=== PATIENT | male | born 1950 | race Caucasian/White ===

== ENCOUNTER 2022-08-05 16:25 | Outpatient (CLI) | payer MEDICARE, SELFPAY ==
[2022-08-05 17:15] LABS: Anion Gap 11 mmol/L (8-16); Blood Urea Nitrogen 36 mg/dL (7-18); Calcium 9.1 mg/dL (8.5-10.1); Carbon Dioxide 27 mmol/L (21-32); Chloride 100 mmol/L (98-108); Estimated Glomerular Filt Rate 58; Glucose 183 mg/dL (70-99); Osmolality Calculated 299 mOsm/kg (285-295); Potassium 4.7 mmol/L (3.5-5.1); Sodium 138 mmol/L (136-145)
== END 2022-08-05 16:26 | disposition home or self-care (01) ==
PROVIDERS: PCP Anesthesiology; Visit Provider Anesthesiology
DX: Z95.0 Presence of cardiac pacemaker (principal)
CPT/HCPCS: 36415; 80048

== ENCOUNTER 2022-08-07 06:28 | Day surgery (SDC) | payer MEDICARE, OTHER, SELFPAY ==
[2022-07-30 13:48] VITALS: BMI 37.3
--- NOTE | 2022-08-02 10:05 | PC.NURSE ---
FAXED REQUEST FORM TO DR ANAMARIA VICTORIA FOR RECENT LABWORK, EKG, PACEMAKER INFO. FAXED CRMD FORM TO HANSEL Stephenson
[2022-08-05 08:32] VITALS: BMI 38.5
--- NOTE | 2022-08-06 10:51 | WPDANESEPPF ---
Anes - Initial Pre Proc Eval Procedure: Operation Date: 08/07/22 07:30 Proposed Procedures p Removal Bilateral Myringotomy Tube - Baldomero Styles MD s Insertion Bilateral Myringotomy Tube - Baldomero Styles MD Date/Time: 08/06/22 10:51 Surgeon: Baldomero Styles MD Pre Op Diagnosis: Bilateral Chronic Otitis Media Patient Data Age: 71 Gender: M Height: 1.78 m Weight: 122 kg Allergies Allergy/AdvReac Type Severity Reaction Status Date / Time KERLINE Inhibitors Allergy Intermediate Unknown Verified 08/07/22 06:19 Home Medications Medication Instructions Recorded Confirmed Type apixaban 5 mg tablet (Eliquis) 5 mg PO BID 07/25/22 08/07/22 History atorvastatin 10 mg tablet 10 mg PO DAILY 07/25/22 08/07/22 History diltiazem HCl 360 mg capsule,24 360 mg PO DAILY 07/25/22 08/07/22 History hr,extended release furosemide 40 mg tablet 40 mg PO QAM 07/25/22 08/07/22 History hydrochlorothiazide 25 mg tablet 25 mg PO DAILY 07/25/22 08/07/22 History insulin aspart U-100 100 unit/mL 45 unit subcut TID 07/25/22 08/07/22 History (3 mL) subcutaneous pen (Novolog FlexPen U-100 Insulin aspart) insulin glargine U-300 conc 300 90 unit subcut QHS 07/25/22 08/07/22 History unit/mL (3 mL) subcutaneous pen (Toujeo Max U-300 SoloStar) losartan 100 mg tablet 100 mg PO DAILY 07/25/22 08/07/22 History metoprolol tartrate 50 mg tablet 50 mg PO DAILY 07/25/22 08/07/22 History spironolactone 50 mg tablet 50 mg PO DAILY 07/25/22 08/07/22 History Patient hx anesthesia problems: none Family hx anesthesia problems: none Results Review: All pre-operative results and documents have been reviewed as part of the pre-operative evaluation. [facility] Past Medical History Medical History (Updated 08/07/22 @ 06:42 by Baldomero Styles MD) Clogged ear Diabetes Hyperlipidemia Hypertension Presence of cardiac pacemaker CHRISTIAN (secretory otitis media) Family History Family History Sibling Diabetes mellitus Mother Cancer Social History Social History Social History: Caffeine- coffee daily Smoking status: Never smoker Second hand tobacco smoke exposure: No Alcohol intake: never Substance use: never Substance use type: does not use Lack of Transportation: YES Lack of Food: Often True Current Housing: I Have Housing Concerned About Future Housing: No Difficulty Paying Gas/Electric Bills: No Difficulty Paying for Meds: No Currently Unemployed: YES Education: Grade School Difficulty w/ Childcare or Family Care: No Living arrangements: with family Spiritual care concerns: No Anes - Eval Final PreProcedure Day of Procedure 08/06/22 10:51 Patient weight: obese Heart: regular rate and rhythm Lungs: clear to auscultation Airway: Mallampati scale class II and special considerations poor dentition Neurological: alert and oriented Last oral intake: >/= 8 hours ASA classification: III Emergent: no Anesthetic plan: proceed Anesthesia type and monitoring: general GIVS and standard monitoring Results Review: All pre-operative results and documents have been reviewed as part of the pre-operative evaluation. Informed Consent: The patient's anesthetic plan and its attendant risks and benefits were discussed with the patient/family/POA. Questions were solicited and answers provided to the satisfaction of the patient/family/POA.
--- NOTE | 2022-08-06 12:36 | PM.HPGS ---
History of Present Illness History of Present Illness Consent: Risks, benefits, and alternatives have been discussed and questions answered. Patient agrees to proceed with procedure. Chief complaint: Bilateral Chronic Otitis Media Narrative: Rodrigue Tillman is a 71 year old male Review of Systems Review of Systems: All systems reviewed & are unremarkable except as noted in HPI and below PMFSH Past Medical History Medical History (Updated 08/07/22 @ 06:42 by Baldomero Styles MD) Clogged ear Diabetes Hyperlipidemia Hypertension Presence of cardiac pacemaker CHRISTIAN (secretory otitis media) Family History Family History Sibling Diabetes mellitus Mother Cancer Social History Social History Social History: Caffeine- coffee daily Smoking status: Never smoker Second hand tobacco smoke exposure: No Alcohol intake: never Substance use: never Substance use type: does not use Lack of Transportation: YES Lack of Food: Often True Current Housing: I Have Housing Concerned About Future Housing: No Difficulty Paying Gas/Electric Bills: No Difficulty Paying for Meds: No Currently Unemployed: YES Education: Grade School Difficulty w/ Childcare or Family Care: No Living arrangements: with family Spiritual care concerns: No Meds Home Medications and Allergies Home Medications Medication Instructions Recorded Confirmed Type apixaban 5 mg tablet (Eliquis) 5 mg PO BID 07/25/22 08/07/22 History atorvastatin 10 mg tablet 10 mg PO DAILY 07/25/22 08/07/22 History diltiazem HCl 360 mg capsule,24 360 mg PO DAILY 07/25/22 08/07/22 History hr,extended release furosemide 40 mg tablet 40 mg PO QAM 07/25/22 08/07/22 History hydrochlorothiazide 25 mg tablet 25 mg PO DAILY 07/25/22 08/07/22 History insulin aspart U-100 100 unit/mL 45 unit subcut TID 07/25/22 08/07/22 History (3 mL) subcutaneous pen (Novolog FlexPen U-100 Insulin aspart) insulin glargine U-300 conc 300 90 unit subcut QHS 07/25/22 08/07/22 History unit/mL (3 mL) subcutaneous pen (Toujeo Max U-300 SoloStar) losartan 100 mg tablet 100 mg PO DAILY 07/25/22 08/07/22 History metoprolol tartrate 50 mg tablet 50 mg PO DAILY 07/25/22 08/07/22 History spironolactone 50 mg tablet 50 mg PO DAILY 07/25/22 08/07/22 History Allergies Allergy/AdvReac Type Severity Reaction Status Date / Time KERLIEN Inhibitors Allergy Intermediate Unknown Verified 08/07/22 06:19 Exam Const: General: cooperative HENMT: Head: normal to inspection Ears: other (tubes in place) Assessment and Plan Assessment and plan (1) Clogged ear: Qualifiers: Laterality: bilateral Qualified Code(s): H93.8X3 - Other specified disorders of ear, bilateral Code(s): H93.8X9 - Other specified disorders of ear, unspecified ear Status: Acute Plan MYRINGOTOMY TUBE SURGERY POSTOPERATIVE DISCHARGE INSTRUCTIONS [facility] 1. ACTIVITY Your child has received anesthesia for this procedure. He/she may feel somewhat dizzy and or sleepy after the surgery. Anesthesia agents can remain in one?s body for up to 24 hours. It is important for your child to rest for the remainder of the day and be under adult supervision. Your child should not ride his/her bike or perform activities that require coordination. Children are usually very grumpy and fussy for several hours following general anesthesia. 2. EAR DRAINAGE A small amount of drainage from the ear canal is normal following this surgery. This drainage or bleeding may continue for the next 3-7 days. The prescribed ear drops will treat this drainage. The drainage may contain a small amount of blood. A cotton ball may be placed in the ear canal opening. Drainage is often an indication that the tubes are ?doing their job?. Ear drainage after the first week
[2022-08-07 06:26] VITALS: BP 146/62; PULSE 58; RESP 20; TEMP 36; O2SAT 95
--- NOTE | 2022-08-07 06:40 | PM.HPGS ---
History of Present Illness History of Present Illness Consent: Risks, benefits, and alternatives have been discussed and questions answered. Patient agrees to proceed with procedure. Chief complaint: Bilateral Chronic Otitis Media Narrative: Rodrigue Tillman is a 71 year old male Review of Systems Review of Systems: All systems reviewed & are unremarkable except as noted in HPI and below PMFSH Past Medical History Medical History (Updated 08/06/22 @ 12:40 by Baldomero Styles MD) Clogged ear Diabetes Hyperlipidemia Hypertension Presence of cardiac pacemaker Family History Family History Sibling Diabetes mellitus Mother Cancer Social History Social History Social History: Caffeine- coffee daily Smoking status: Never smoker Second hand tobacco smoke exposure: No Alcohol intake: never Substance use: never Substance use type: does not use Lack of Transportation: YES Lack of Food: Often True Current Housing: I Have Housing Concerned About Future Housing: No Difficulty Paying Gas/Electric Bills: No Difficulty Paying for Meds: No Currently Unemployed: YES Education: Grade School Difficulty w/ Childcare or Family Care: No Living arrangements: with family Spiritual care concerns: No Meds Home Medications and Allergies Home Medications Medication Instructions Recorded Confirmed Type apixaban 5 mg tablet (Eliquis) 5 mg PO BID 07/25/22 08/07/22 History atorvastatin 10 mg tablet 10 mg PO DAILY 07/25/22 08/07/22 History diltiazem HCl 360 mg capsule,24 360 mg PO DAILY 07/25/22 08/07/22 History hr,extended release furosemide 40 mg tablet 40 mg PO QAM 07/25/22 08/07/22 History hydrochlorothiazide 25 mg tablet 25 mg PO DAILY 07/25/22 08/07/22 History insulin aspart U-100 100 unit/mL 45 unit subcut TID 07/25/22 08/07/22 History (3 mL) subcutaneous pen (Novolog FlexPen U-100 Insulin aspart) insulin glargine U-300 conc 300 90 unit subcut QHS 07/25/22 08/07/22 History unit/mL (3 mL) subcutaneous pen (Toujeo Max U-300 SoloStar) losartan 100 mg tablet 100 mg PO DAILY 07/25/22 08/07/22 History metoprolol tartrate 50 mg tablet 50 mg PO DAILY 07/25/22 08/07/22 History spironolactone 50 mg tablet 50 mg PO DAILY 07/25/22 08/07/22 History Allergies Allergy/AdvReac Type Severity Reaction Status Date / Time KERLINE Inhibitors Allergy Intermediate Unknown Verified 08/07/22 06:19 Vital Signs Vital Signs - 24 hr 08/07/22 06:26 Temperature 36.0 C L Pulse Rate 58 L Respiratory Rate 20 Blood Pressure 146/62 H Pulse Oximetry 95 Oxygen Delivery Room Air Exam HENMT: Other: tympanic membranes retracted with fluid nose mild negative serous otitis bilateral
--- NOTE | 2022-08-07 06:41 | PM.HPGS ---
History of Present Illness History of Present Illness Consent: Risks, benefits, and alternatives have been discussed and questions answered. Patient agrees to proceed with procedure. Chief complaint: Bilateral Chronic Otitis Media Narrative: Rodrigue Tilmlan is a 71 year old male [facility] Past Medical History Medical History (Updated 08/07/22 @ 06:42 by Baldomero Styles MD) Clogged ear Diabetes Hyperlipidemia Hypertension Presence of cardiac pacemaker CHRISTIAN (secretory otitis media) Family History Family History Sibling Diabetes mellitus Mother Cancer Social History Social History Social History: Caffeine- coffee daily Smoking status: Never smoker Second hand tobacco smoke exposure: No Alcohol intake: never Substance use: never Substance use type: does not use Lack of Transportation: YES Lack of Food: Often True Current Housing: I Have Housing Concerned About Future Housing: No Difficulty Paying Gas/Electric Bills: No Difficulty Paying for Meds: No Currently Unemployed: YES Education: Grade School Difficulty w/ Childcare or Family Care: No Living arrangements: with family Spiritual care concerns: No Meds Home Medications and Allergies Home Medications Medication Instructions Recorded Confirmed Type apixaban 5 mg tablet (Eliquis) 5 mg PO BID 07/25/22 08/07/22 History atorvastatin 10 mg tablet 10 mg PO DAILY 07/25/22 08/07/22 History diltiazem HCl 360 mg capsule,24 360 mg PO DAILY 07/25/22 08/07/22 History hr,extended release furosemide 40 mg tablet 40 mg PO QAM 07/25/22 08/07/22 History hydrochlorothiazide 25 mg tablet 25 mg PO DAILY 07/25/22 08/07/22 History insulin aspart U-100 100 unit/mL 45 unit subcut TID 07/25/22 08/07/22 History (3 mL) subcutaneous pen (Novolog FlexPen U-100 Insulin aspart) insulin glargine U-300 conc 300 90 unit subcut QHS 07/25/22 08/07/22 History unit/mL (3 mL) subcutaneous pen (Toujeo Max U-300 SoloStar) losartan 100 mg tablet 100 mg PO DAILY 07/25/22 08/07/22 History metoprolol tartrate 50 mg tablet 50 mg PO DAILY 07/25/22 08/07/22 History spironolactone 50 mg tablet 50 mg PO DAILY 07/25/22 08/07/22 History Allergies Allergy/AdvReac Type Severity Reaction Status Date / Time KERLINE Inhibitors Allergy Intermediate Unknown Verified 08/07/22 06:19 Vital Signs Vital Signs - 24 hr 08/07/22 06:26 Temperature 36.0 C L Pulse Rate 58 L Respiratory Rate 20 Blood Pressure 146/62 H Pulse Oximetry 95 Oxygen Delivery Room Air Assessment and Plan Assessment and plan (1) CHRISTIAN (secretory otitis media): Code(s): H65.90 - Unspecified nonsuppurative otitis media, unspecified ear Status: Acute Plan removal andrerplacement tubes
--- NOTE | 2022-08-07 06:42 | WPDHPUPDATE1 ---
History and Physical Update Update Date/Time: 08/07/22 06:42 History and Physical has been reviewed, including an updated exam of the patient. There are NO changes in the patient's condition. Risks, benefits, and alternatives have been discussed and questions answered. Patient agrees to proceed with procedure.
[2022-08-07] MEDS: LACTATED RINGERS 1,000 ML 30 ML IV CONT (06:58)
[2022-08-07] MEDS: CIPROFLOXACIN HCL 0.3% OP SOLN 2.5 ML BTL 4 DROP EACH EAR (07:31)
--- NOTE | 2022-08-07 07:37 | W.PM.PROC2 ---
Procedure Note - Detailed Date of Procedure 08/07/22 Pre-op Diagnosis Bilateral Chronic Otitis Media Post-op Diagnosis Same Procedure Performed BMT Surgeon Baldomero Styles MD Anesthesia General Description of Procedure Patient was prepped and draped in the in the usual fashion after induction of general anesthesia. The [] ear was inspected. Cerumen was removed the ear canal. An anteroinferior incision sit incision was made fluid aspirated and a Sabas bobbin inserted. This procedure was repeated on the other ear with similar findings. Patient awakened returned to recovery in good condition. Packing No Pathology None sent Complications None Condition Stable Disposition Same day [facility] Billing Surgery - Charge Forward: Surgery Billing
[2022-08-07 07:38] VITALS: BP 119/61; PULSE 60; RESP 16; O2SAT 99
[2022-08-07 07:48] VITALS: BP 128/65; PULSE 60; RESP 20; O2SAT 95
[2022-08-07 07:58] VITALS: BP 113/64; PULSE 60; RESP 18; O2SAT 99
[2022-08-07 08:08] VITALS: BP 124/61; PULSE 60; RESP 20; O2SAT 99
--- NOTE | 2022-08-07 12:40 | WPDANESPN ---
Anes - Prog Note Post-Op Date/Time: 08/07/22 12:40 Cardiovascular status: normal Respiratory status: normal Airway patency: baseline Mental status: baseline Post-Op hydration status: normal Vital Signs: Last Vital Signs Temp 36.0 C L 08/07/22 06:26 Pulse 60 08/07/22 08:08 Resp 20 08/07/22 08:08 BP 124/61 08/07/22 08:08 Pulse Ox 99 08/07/22 08:08 O2 Del Method Room Air 08/07/22 08:08 O2 Flow Rate 8 08/07/22 07:38 Pain Score (VAS): 0 I/O: Intake & Output 08/06/22 08/07/22 08/07/22 23:59 07:59 15:59 Intake Total 300 50 Balance 300 50 Post-procedural complaints: none Patient Feedback: Patient satisfied with anesthetic care. Other Findings: Patient vital signs back to baseline. Patient denies nausea and vomiting. Patient's pain under control. Patient OK for discharge.
[2022-08-08 05:53] LABS: Glucose Point of Care 205 mg/dl (65-105)
== END 2022-08-07 08:40 | disposition home or self-care (01) ==
PROVIDERS: PCP Family Medicine; Visit Provider Otolaryngology
PROC: (CPT 69424; principal; 2022-08-07 07:30)
PROC: (CPT 69436; 2022-08-07 07:30)
DX: H65.33 Chronic mucoid otitis media, bilateral (principal)
CPT/HCPCS: 69436 ×2; J7342

== ENCOUNTER 2023-04-29 01:02 | Day surgery (SDC) | payer MEDICARE, OTHER, SELFPAY ==
--- NOTE | 2023-04-18 13:25 | PC.NURSE ---
Report to the Outpatient Waiting Room, entrance under the green pavilion located off [facility], at time _0945 on date ___04/29/23____. Planned Procedure Time: _1145 . Time changes happen often and if your time is changed the preop area will call you the afternoon before. - You and your visitor will be asked to self-screen and do not enter if you have any COVID symptoms. - A mask is optional within the hospital at this time. Patients may have clear liquids (water, carbonated beverages, clear teas, apple juice) until 3 hours prior to surgery( 8:45 AM) with a maximum of 20 ounces. - No food from midnight until time of surgery - Infants may have breast milk until 4 hours before surgery, formula 6 hours prior to surgery. - Children will be allowed to drink immediately following surgery. If applicable, please bring a bottle or sippy cup to assist with drinking. Juice, water, soda, and popsicles are readily available. For infants on formula, please bring formula the day of surgery. Pacifiers are allowed. Take the following medications with a SIP of water the morning of surgery: __DILTIAZEM,METOPROLOL, DO NOT STOP ANY OF YOUR OTHER PRESCRIPTION MEDICATIONS PRIOR TO SURGERY ?EXCEPT THE FOLLOWING Medications to discontinue per physician ____WIFE TO CALL DR GREENBERG_REGARDING ELIQUIS Please no make-up, nail greenlandic, hairspray, perfume, deodorant, or body powder the day of surgery. No jewelry (including any body piercings) or valuables the day of surgery, leave them at home. Please take a shower or bath the night before, or the morning of, surgery with an antibacterial soap. Wear comfortable, loose fitting clothing. Children are encouraged to wear pajamas. - Jewelry must be removed prior to entering the operating room. Rings and piercings that are not removed may be cut off. - The hospital will not accept responsibility for valuables. - Please leave all valuables, including medications, at home the day of surgery. If you are going home after surgery, a licensed milk driver must drive you home. - NO public transportation without another adult if you receive anesthesia. - We recommend that an adult stay with you for 24 hours following discharge. - We also recommend that you do not drive, make important decision, drink alcoholic beverages, or take any drugs that were not prescribed by your health care provider for at least 24 hours after your discharge time. Follow any additional instructions given to you from your surgeon. If you or anyone in your household have experienced Covid symptoms in the past week, please notify your surgeon or the nurse liaison at the phone number below for possible testing. Telephone instructions given to _WIFE MOSES and asked if any additional questions and then verbalized understanding. Patient advised to call surgeon office or pre surgery nurse liaison [phone] if any additional questions.
[2023-04-18 13:46] VITALS: BMI 39.4
--- NOTE | 2023-04-28 17:15 | PM.IMHP ---
H&P: HPI History of Present Illness Date/Time: 04/28/23 17:15 Chief Complaint: eustachian tube dysfunction bilaterally recurrent otitis media chronic otitis media Narrative: planned procedure Review of Systems Review of Systems: All systems reviewed & are unremarkable except as noted in HPI and below PMFSH Past Medical History Medical History (Updated 04/03/23 @ 07:42 by Alan Montemayor MD) Clogged ear Diabetes Hyperlipidemia Hypertension Presence of cardiac pacemaker CHRISTIAN (secretory otitis media) Family History Family History Sibling Diabetes mellitus Mother Cancer Social History Social History Social History: Caffeine- coffee daily Smoking status: Never smoker Second hand tobacco smoke exposure: No Alcohol intake: never Substance use: never Substance use type: does not use Lack of Transportation: YES Lack of Food: Often True Current Housing: I Have Housing Concerned About Future Housing: No Difficulty Paying Gas/Electric Bills: No Difficulty Paying for Meds: No Currently Unemployed: YES Education: Grade School Difficulty w/ Childcare or Family Care: No Living arrangements: with family Spiritual care concerns: No Meds Home Medications and Allergies Home Medications Medication Instructions Recorded Confirmed Type apixaban 5 mg tablet (Eliquis) 5 mg PO BID 07/25/22 04/18/23 History atorvastatin 10 mg tablet 10 mg PO HS 07/25/22 04/18/23 History diltiazem HCl 360 mg capsule,24 360 mg PO DAILY 07/25/22 04/18/23 History hr,extended release furosemide 40 mg tablet 40 mg PO QAM 07/25/22 04/18/23 History hydrochlorothiazide 25 mg tablet 25 mg PO DAILY 07/25/22 04/18/23 History insulin aspart U-100 100 unit/mL 45 unit subcut TID 07/25/22 04/18/23 History (3 mL) subcutaneous pen (Novolog FlexPen U-100 Insulin aspart) losartan 100 mg tablet 100 mg PO DAILY 07/25/22 04/18/23 History metoprolol tartrate 50 mg tablet 50 mg PO DAILY 07/25/22 04/18/23 History spironolactone 50 mg tablet 50 mg PO DAILY 07/25/22 04/18/23 History insulin glargine 100 unit/mL (3 110 unit subcut HS 04/18/23 04/18/23 History mL) subcutaneous pen (Basaglar KwikPen U-100 Insulin) Allergies Allergy/AdvReac Type Severity Reaction Status Date / Time KERLINE Inhibitors Allergy Intermediate Unknown Verified 04/18/23 13:13 Exam Narrative: fluid both sides Assessment and Plan Assessment and plan (1) Otitis media of both ears: Code(s): H66.93 - Otitis media, unspecified, bilateral Status: Acute Assessment and Plan: plan OR bilateral myringotomy T-tube insertion nasal endoscopy bilateral eustachian tube balloon dilation risks discussed stroke bleeding damage to carotid arteries bleeding infection damage to surrounding structures damage any structures the clavicle by myself damage to any structure induction remains of anesthesia including vocal cord paralysis persistent otorrhea need for replacement of tubes need for further procedures failure to resolve symptoms cholesteatoma formation facial nerve damage paralysis persistent perforation which would be good for the patient but it is a risk. Patient voiced understanding and agreed. (2) Dysfunction of both eustachian tubes: Code(s): H69.93 - Unspecified Eustachian tube disorder, bilateral Status: Acute (3) Hearing loss, bilateral: Code(s): H91.93 - Unspecified hearing loss, bilateral Status: Acute
[2023-04-29] VITALS (8 sets, daily range): BP systolic 130–144; BP diastolic 58–69; PULSE 59–61; RESP 10–20; TEMP 36.7–36.8; O2SAT 93–99
--- NOTE | 2023-04-29 07:17 | WPDHPUPDATE1 ---
History and Physical Update Update Date/Time: 04/29/23 07:17 History and Physical has been reviewed, including an updated exam of the patient. There are NO changes in the patient's condition. Risks, benefits, and alternatives have been discussed and questions answered. Patient agrees to proceed with procedure.
[2023-04-29] MEDS: ACETAMINOPHEN 500 MG TABLET 1000 MG PO (11:04)
[2023-04-29] MEDS: LACTATED RINGERS 1,000 ML 30 ML IV CONT (11:05)
--- NOTE | 2023-04-29 11:08 | WPDANESEPPF ---
Anes - Initial Pre Proc Eval Procedure: Operation Date: 04/29/23 12:15 Proposed Procedures p Bilateral Myringotomy,Insertion Of T-Tubes - Alan Montemayor MD s Nasal Endoscopy, Bilateral Eustachian Tube Balloon Dilation - Alan Montemayor MD Date/Time: 04/29/23 11:08 Surgeon: Alan Montemayor MD Pre Op Diagnosis: Eustachain Tube Dysfunction Patient Data Age: 72 Gender: M Height: 1.78 m Weight: 124.75 kg Allergies Allergy/AdvReac Type Severity Reaction Status Date / Time KERLINE Inhibitors Allergy Intermediate Unknown Verified 04/18/23 13:13 Home Medications Medication Instructions Recorded Confirmed Type apixaban 5 mg tablet (Eliquis) 5 mg PO BID 07/25/22 04/18/23 History atorvastatin 10 mg tablet 10 mg PO HS 07/25/22 04/18/23 History diltiazem HCl 360 mg capsule,24 360 mg PO DAILY 07/25/22 04/18/23 History hr,extended release furosemide 40 mg tablet 40 mg PO QAM 07/25/22 04/18/23 History hydrochlorothiazide 25 mg tablet 25 mg PO DAILY 07/25/22 04/18/23 History insulin aspart U-100 100 unit/mL 45 unit subcut TID 07/25/22 04/18/23 History (3 mL) subcutaneous pen (Novolog FlexPen U-100 Insulin aspart) losartan 100 mg tablet 100 mg PO DAILY 07/25/22 04/18/23 History metoprolol tartrate 50 mg tablet 50 mg PO DAILY 07/25/22 04/18/23 History spironolactone 50 mg tablet 50 mg PO DAILY 07/25/22 04/18/23 History insulin glargine 100 unit/mL (3 110 unit subcut HS 04/18/23 04/18/23 History mL) subcutaneous pen (Basaglar KwikPen U-100 Insulin) Patient hx anesthesia problems: none Family hx anesthesia problems: none Results Review: All pre-operative results and documents have been reviewed as part of the pre-operative evaluation. [facility] Past Medical History Medical History Clogged ear Diabetes Hyperlipidemia Hypertension Presence of cardiac pacemaker CHRISTIAN (secretory otitis media) Family History Family History Sibling Diabetes mellitus Mother Cancer Social History Social History Social History: Caffeine- coffee daily Smoking status: Never smoker Second hand tobacco smoke exposure: No Alcohol intake: never Substance use: never Substance use type: does not use Lack of Transportation: YES Lack of Food: Often True Current Housing: I Have Housing Concerned About Future Housing: No Difficulty Paying Gas/Electric Bills: No Difficulty Paying for Meds: No Currently Unemployed: YES Education: Grade School Difficulty w/ Childcare or Family Care: No Living arrangements: with family Spiritual care concerns: No Anes - Eval Final PreProcedure Day of Procedure 04/29/23 11:08 Patient weight: morbidly obese Heart: regular rate and rhythm Lungs: clear to auscultation Airway: Mallampati scale class II Neurological: alert and oriented Last oral intake: >/= 8 hours ASA classification: III Emergent: no Anesthetic plan: proceed Anesthesia type and monitoring: general GIVS and standard monitoring Results Review: All pre-operative results and documents have been reviewed as part of the pre-operative evaluation. Informed Consent: The patient's anesthetic plan and its attendant risks and benefits were discussed with the patient/family/POA. Questions were solicited and answers provided to the satisfaction of the patient/family/POA.
[2023-04-29 11:16] LABS: Glucose Point of Care 219 mg/dl (65-105)
--- NOTE | 2023-04-29 11:43 | SUR.PREOP ---
1140-Dr. Montemayor aware pt continued Eliquis and took yesterday.
[2023-04-29] MEDS: ceFAZolin 3 GM/D5W 100 ML 100 ML IVPB (12:00)
[2023-04-29] MEDS: OXYMETAZOLINE HCL 0.05% NAS 15 ML BTL (*BKC) 1 SPRAY NASAL (12:40)
[2023-04-29] MEDS: CIPROFLOXACIN HCL 0.3% OP SOLN 2.5 ML BTL 4 DROP EACH EAR (12:41)
--- NOTE | 2023-04-29 12:58 | W.PM.PROC2 ---
Procedure Note - Detailed Date of Procedure 04/29/23 Pre-op Diagnosis Eustachain Tube Dysfunction , recurrent otitis media, chronic otitis media Post-op Diagnosis Same Procedure Performed nasal endoscopy, bilateral myringotomy T-tube insertion Surgeon Alan Montemayor MD Anesthesia General ( LMA) Indications see above Findings copious amounts of fluid proper placement of the T tubes. Unable to balloon eustachian tubes bony stenosis was noted. Not able to pass the portion the distal portion of the balloon. No bleeding Description of Procedure patient identified consent verified preop. Patient brought to the operating. Time-out performed. General anesthesia induced endotracheal tube secured. Patient prepped draped position procedure confirmed 2nd time-out performed. Sorry LMA not endotracheal tube. Ears visualized cerumen removed myringotomy made copious amounts of fluid suctioned out T-Tube placed. Afrin-soaked pledgets placed transnasally 0 degree endoscope utilized balloon passed transnasally not able to cannulate the bilateral eustachian tubes feels like bony stenosis. Minimal bleeding if any. Patient tolerated the procedure well all the hardware removed. Care the patient given back to Anesthesiology. I performed all the dictated portions. No complications. Patient taken to PACU. Estimated Blood Loss 0 Drains No Packing No Pathology None sent Complications No immediate complications Condition Stable Disposition PACU [facility] Billing Surgery - Charge Forward: Surgery Billing
[2023-04-29 13:01] LABS: Glucose Point of Care 220 mg/dl (65-105)
== END 2023-04-29 14:35 | disposition home or self-care (01) ==
PROVIDERS: PCP Family Medicine; Visit Provider Otolaryngology
PROC: (CPT 69436; principal; 2023-04-29 12:15)
PROC: (CPT 69436; 2023-04-29 12:15)
DX: H66.93 Otitis media, unspecified, bilateral (principal); H69.93 Unspecified Eustachian tube disorder, bilateral; H91.93 Unspecified hearing loss, bilateral; I10 Essential (primary) hypertension; E78.5 Hyperlipidemia, unspecified; E11.9 Type 2 diabetes mellitus without complications; Z95.0 Presence of cardiac pacemaker; E66.01 Morbid (severe) obesity due to excess calories; Z68.39 Body mass index [BMI] 39.0-39.9, adult; Z79.01 Long term (current) use of anticoagulants; Z79.4 Long term (current) use of insulin; Z53.8 Procedure and treatment not carried out for other reasons
CPT/HCPCS: 69436; 69705; 82948; A9270; C1726; J0690; J2405; J2704; J3010; J7120